=== PATIENT | male | born 1995 | race American Indian/Alaskan Native ===

== ENCOUNTER 2018-04-07 10:56 | Emergency (ER) | payer OTHER ==
[2018-04-07 10:58] VITALS: BMI 21.4
[2018-04-07 11:16] VITALS: BP 121/80; PULSE 68; RESP 20; TEMP 97; O2SAT 98
--- NOTE | 2018-04-07 11:25 | ED PDOC ---
HPI: General Adult Time Seen by Provider: 04/07/18 11:13 Chief Complaint (Nursing): Abdominal Pain Chief Complaint (Provider): Hernia History Per: Patient History/Exam Limitations: no limitations Onset/Duration Of Symptoms: Days (1 year) Additional Complaint(s): Pt. with gas like pain in left groin off and on. States going on for 1 year. No nausea, vomit, diarrhea, weakness, headaches, back pain, testicular pain, dysuria, abd pain, fever, or any other symptoms. Pt. with no injury. Currently no pain or symptoms. States had a bulge there before. Past Medical History Reviewed: Nursing Documentation, Vital Signs Vital Signs: Last Vital Signs Temp 97 F L 04/07/18 11:14 Pulse 68 04/07/18 11:14 Resp 20 04/07/18 11:14 BP 121/80 04/07/18 11:14 Pulse Ox 98 04/07/18 11:14 - Medical History PMH: Asthma - Surgical History Surgical History: No Surg Hx - Family History Family History: States: Unknown Family Hx - Immunization History Hx Tetanus Toxoid Vaccination: No - Home Medications Home Medications: Ambulatory Orders Medication Instructions Recorded Cephalexin [Keflex] 500 mg PO BID #14 cap 12/11/13 - Allergies Allergies/Adverse Reactions: Allergies Allergy/AdvReac Type Severity Reaction Status Date / Time acetaminophen Allergy Unknown ANAPHYLAXIS Verified 04/07/18 11:14 Review of Systems ROS Statement: Except As Marked, All Systems Reviewed And Found Negative Gastrointestinal: Positive for: Other (groin pain) Physical Exam - Reviewed Nursing Documentation Reviewed: Yes Vital Signs Reviewed: Yes - Physical Exam Appears: Positive for: Well, Non-toxic, No Acute Distress Head Exam: Positive for: ATRAUMATIC, NORMAL INSPECTION, NORMOCEPHALIC Skin: Positive for: Normal Color, Warm, DRY Eye Exam: Positive for: EOMI, Normal appearance, PERRL ENT: Positive for: Normal ENT Inspection Neck: Positive for: Normal, Painless ROM Cardiovascular/Chest: Positive for: Regular Rate, Rhythm Respiratory: Positive for: CNT, Normal Breath Sounds Gastrointestinal/Abdominal: Positive for: Normal Exam, Soft, Other (no groin tenderness on the left; no bulging). Negative for: Tenderness Back: Positive for: Normal Inspection. Negative for: L CVA Tenderness, R CVA Tenderness Extremity: Positive for: Normal ROM. Negative for: Tenderness Neurologic/Psych: Positive for: Alert, Oriented - ECG O2 Sat by Pulse Oximetry: 98 - Progress ED Course And Treament: 1126: No testicular pain at anytime. No symptoms or bulging at this time. Fu with surgery and pcp for possible hernia eval. Disposition - Clinical Impression Clinical Impression: Hernia - Patient ED Disposition Is Patient to be Admitted: No Counseled Patient/Family Regarding: Diagnosis, Need For Followup - Disposition Referrals: Cam Mims MD [Staff Provider] - 04/09/18 [facility] [place] [Outside] - 04/09/18 Disposition: Routine/Home Disposition Time: 11:28 Condition: STABLE Additional Instructions: Return if not better in 3 days. Instructions: Abdominal Hernia (DC) Forms: [facility] ED School/Work Excuse, [facility] (Pashto)
== END 2018-04-07 11:47 | disposition home or self-care (01) ==
LOC: H.ER 10:56
DX: K46.9 Unspecified abdominal hernia without obstruction or gangrene (principal)